=== PATIENT | female | born 1950 | race African-American/Black ===

== ENCOUNTER 2020-09-30 10:41 | Emergency (ER) | payer MEDICAID, MEDICARE ==
[~2020-09-30] VITALS: Ht 175.3 cm; Wt 57.0 kg
[2020-09-30 10:50] VITALS: BP 143/96
[2020-09-30 11:49] LABS: HEMATOCRIT. 26.8 % (36.0-48.0); HEMOGLOBIN. 7.9 g/dL (12.0-16.0); MEAN CORPUSCULAR HEMOGLOBIN 19.9 pg (28.0-32.0); MEAN CORPUSCULAR VOLUME 67.2 fL (81.0-99.0); MEAN PLATELET VOLUME 8.4 fl (7.4-10.4); PLATELET 231 x1000/uL (130-400); RED BLOOD CELL COUNT 3.99 mill/uL (4.2-5.4); RED CELL DISTRIBUTION WIDTH 21.4 % (11.6-14.6)
[2020-09-30 12:08] LABS: TOTAL IRON BINDING CAPACITY 619 ug/dL (250-450)
[2020-09-30 12:49] LABS: PLATELET ESTIMATE NORMAL
== END 2020-09-30 13:58 | disposition home or self-care (01) ==
LOC: ER 10:41
DX: R79.9 Abnormal finding of blood chemistry, unspecified (principal); I10 Essential (primary) hypertension; F17.200 Nicotine dependence, unspecified, uncomplicated
CPT/HCPCS: 36415; 83540; 83550; 85025; 86850; 86900; 86920; 93005; 99284